=== PATIENT | female | born 2000 | race American Indian/Alaskan Native ===

== ENCOUNTER 2022-06-07 12:40 | Emergency (ER) | payer SELFPAY ==
[2022-06-07 13:42] VITALS: BP 113/84
--- NOTE | 2022-06-07 14:28 | XRay Report ---
ABDOMEN 2 VIEW(S) INDICATION / CLINICAL INFORMATION: Nausea, Vomiting and Diarrhea. COMPARISON: None available. FINDINGS: TUBES / LINES: None. BOWEL GAS PATTERN/EXTRALUMINAL GAS: No significant abnormality. No pneumatosis or secondary signs of free air. ADDITIONAL FINDINGS: No significant additional findings. IMPRESSION: 1. No acute findings. Signer Name: Ten Bell MD Signed: 06/07/2022 2:23 PM Workstation Name: [id number]
== END 2022-06-08 02:16 | disposition left against medical advice (07) ==
LOC: ED 12:40
DX: R07.9 Chest pain, unspecified (principal); Z53.21 Procedure and treatment not carried out due to patient leaving prior to being seen by health care provider
CPT/HCPCS: 74019